=== PATIENT | female | born 1985 | race African-American/Black ===

== ENCOUNTER 2020-12-24 10:13 | Outpatient (REF) | payer OTHER, SELFPAY ==
--- NOTE | ~2020-12-24 | MR_ITS ---
MRI OF THE BRAIN WITHOUT IV CONTRAST INDICATION: Chronic daily headaches. COMPARISON: None available. TECHNIQUE: Multiplanar multisequence MR imaging of the brain was obtained without IV contrast. FINDINGS: There is no hydrocephalus, extra-axial surface collection, or herniation. No parenchymal signal abnormality. The major flow voids at the skull base are preserved. There is no acute infarct on diffusion-weighted imaging. There is no intracranial hemorrhage on the gradient recalled echo acquisition. The midline structures are normal. The cerebellar tonsils are normally positioned. The cerebellum and brainstem are normal. The craniocervical junction is normal. Osseous marrow signal intensity is homogenous. The visualized soft tissues are unremarkable. The right sphenoid sinus is completely opacified and there is a retention cyst within the left sphenoid sinus. Mild mucosal thickening within the ethmoid air cells bilaterally. MR/MR head/brain wo con IMPRESSION: - Unremarkable noncontrast MRI of the brain. - Complete opacification of the right sphenoid sinus and retention cysts within the left sphenoid sinus.
== END 2020-12-24 10:14 | disposition home or self-care (01) ==
LOC: HO.MRI 10:13
PROVIDERS: Absent Provider Family Medicine; PCP Family Medicine; Visit Provider Psychiatry & Neurology Neurology
DX: R51.9 Headache, unspecified (principal)
CPT/HCPCS: 70551

== ENCOUNTER 2021-01-15 09:19 | Day surgery (SDC) | payer OTHER, SELFPAY ==
[2021-01-15] VITALS (9 sets, daily range): BP systolic 119–135; BP diastolic 65–78; PULSE 78–91; RESP 16; TEMP 36.8; O2SAT 98–100; BMI 37.2
--- NOTE | ~2021-01-15 | FL_ITS ---
EXAMINATION: FLUOROSCOPY-GUIDED LUMBAR PUNCTURE CLINICAL INFORMATION: Chronic daily headache. COMPARISON: None TECHNIQUE: Following explaining fluoroscopy-guided lumbar puncture procedure, benefits and risk, a written consent was obtained. Patient was placed prone on fluoroscopy table and low back area was cleaned and draped in usual sterile manner. 1% lidocaine was injected at the marked site. Through a left para midline approach a 22-gauge, 6 inch long needle was inserted from the skin intrathecally at the L4-L5 disc level. After observing CSF return following removal of stylet, patient was quickly placed in left lateral view and opening CSF pressure was obtained. CSF was then collected in 4 test tubes. Initially there was hemorrhagic hence the CSF is slightly pinkish color. Postprocedure stylet was reintroduced and needle withdrawn with pressure applied at the puncture site. Patient tolerated procedure extremely well. Sterile bandage applied postprocedure. FINDINGS: On preliminary fluoroscopy imaging the vertebral heights and alignment are normal. There is a needle positioned at the L4-L5 disc level. Opening CSF pressure was 13 cm of water. Approximately 10 mL of clear CSF fluid collected. Some of the tubes may be pinkish color from hemorrhagic tap. FLUOROSCOPY TIME: 3.9 minutes DOSE AREA PRODUCT: 244.0 uGy-m2 (microgray-meter squared) FL/FL guided lumbar puncture LP IMPRESSION: Successful fluoroscopy-guided lumbar puncture performed with an opening CSF pressure of 13 cm of water. Some of the CSF and the tubes is pinkish color likely from hemorrhagic tap. Otherwise the CSF is clear.
[2021-01-15 09:59] LABS: MANUAL DIFF FLAG NO
[2021-01-15 10:03] LABS: Basophils Percent Auto 0.3 % (0-2); Eosinophils Absolute Auto 0.3 X10*3/uL (0.0-0.4); Eosinophils Percent Auto 4.2 % (0-4); Hematocrit 36.8 % (37-47); Hemoglobin 11.4 g/dl (12.0-16.0); Imm Gran Abs Auto 0.02 X10*3/uL (0.00-0.03); Imm Gran Pct Auto 0.3 % (0.0-0.4); Lymphocytes Absolute Auto 2.1 X10*3/uL (1.2-4.9); Lymphocytes Percent Auto 28.1 % (20-40); Mean Corpuscular Hemoglobin 26.5 pg (27.0-33.0); Mean Corpuscular Volume 85.4 fL (80-98); Mean Platelet Volume 9.4 fL (9.4-12.3); Monocytes Absolute Auto 0.5 X10*3/uL (0.1-1.2); Monocytes Percent Auto 6.1 % (2-11); Neutrophils Absolute Auto 4.5 X10*3/uL (2.0-8.3); Platelet Count 294 X10*3/uL (160-400); Red Blood Count 4.31 X10*6/uL (4.20-5.50); White Blood Count 7.4 X10*3/uL (4.8-10.8)
[2021-01-15 10:15] LABS: INTERNATIONAL NORM RATIO 1.1 (0.9-1.1); Prothrombin Time 12.7 SEC (10.8-13.0)
[2021-01-15 10:18] LABS: Partial Thromboplastin Time 37.6 SEC (24.1-38.0)
[2021-01-15 10:41] LABS: UPreg QC Valid YES; Urine Pregnancy NEGATIVE (NEGATIVE)
[2021-01-15 12:56] LABS: CSF Appearance Bloody; CSF Tube # 1
[2021-01-15 13:37] LABS: Glucose CSF 60 mg/dL; Total Protein CSF 49.7 mg/dL (15-45)
[2021-01-15 13:38] LABS: Appearance CSF HAZY; CSF Tube # 4; Color CSF PINK
[2021-01-15 13:39] LABS: CSF Monos 4 %; CSF Other Cells % 0 %; Lymphocytes CSF 58 %; Neutrophils CSF 28 %; Red Blood Cell CSF 2000 MM*3; White Blood Cell CSF 1 MM*3
== END 2021-01-15 15:41 | disposition home or self-care (01) ==
PROVIDERS: Psychiatry & Neurology Neurology; Radiology Diagnostic Radiology; PCP Family Medicine; Visit Provider Radiology Diagnostic Radiology
PROC: 009U3ZZ Drainage of Spinal Canal, Percutaneous Approach (ICD-10-PCS; CPT 62270; principal; 2021-01-15 11:00)
DX: R51.9 Headache, unspecified (principal); F32.9 Major depressive disorder, single episode, unspecified; F43.10 Post-traumatic stress disorder, unspecified; F41.9 Anxiety disorder, unspecified; E66.9 Obesity, unspecified; Z79.899 Other long term (current) drug therapy; Z88.8 Allergy status to other drugs, medicaments and biological substances
CPT/HCPCS: 36415; 62328; 81025; 82945; 84157; 85025; 85610; 85730; 87015; 87070; 87205; 89051

== ENCOUNTER 2021-01-18 11:05 | Emergency (ER) | payer OTHER, SELFPAY ==
[2021-01-18 11:43] VITALS: BP 170/109; PULSE 108; RESP 18; TEMP 36.5; O2SAT 98; BMI 37.2
[2021-01-18 14:09] VITALS: BP 142/88; PULSE 94; RESP 16; TEMP 36.4; O2SAT 99
--- NOTE | 2021-01-18 14:24 | ECG_ITS ---
Test Reason : WEAKNESS Blood Pressure : / mmHG Vent. Rate : 084 BPM Atrial Rate : 084 BPM P-R Int : 126 ms QRS Dur : 084 ms QT Int : 358 ms P-R-T Axes : 036 077 035 degrees QTc Int : 423 ms Normal sinus rhythm Normal ECG No previous ECGs available Referred By: Dee Helton Electronically Signed By:Abran Slater
--- NOTE | 2021-01-18 14:29 | ED_ITS ---
HPI - Headache General Chief Complaint: Headache Stated Complaint: had spinal tap headache Time Seen by Provider: 01/18/21 14:11 Source: patient Mode of arrival: ambulatory History of Present Illness HPI Narrative: 35-year-old female with a past medical history anxiety, depression, fibromyalgia, migraines, presenting to the ED complaining of persistent headache s/p lumbar puncture on [place] here [place] [facility] [place] in by Dr. Abel. Admits headache persistent worse with sitting, standing with associated lightheadedness, chest discomfort, and tingling in left arm. Was seen at [facility] the ED on Monday given IVF with no relief. Also reports nausea and vomiting. Denies fever, chills, visual change/loss, shortness of breath, leakage/infectious symptoms from site MD elicited complaint: headache Related Data Allergies Allergy/AdvReac Type Severity Reaction Status Date / Time diphenhydramine Allergy Intermediate Anaphylaxis Verified 01/15/21 09:40 [From Benadryl] Review of Systems Review of Systems: Constitutional: No Fever, No Chills Eyes: No Vision Changes Cardiovascular: + Chest Pain, No SOB Gastrointestinal: + Nausea, + Vomiting, No Diarrhea, No Constipation, No Abdominal pain Musculoskeletal: No joint pain, No Myalgias, No Joint Swelling Skin: No Skin Lesions, No rash Neuro: No Weakness, No Numbness, + Paresthesias, No Loss of Consciousness, + Dizziness/lightheadedness, + Headache Yes all other systems are reviewed and are negative [facility] Past Medical History Attestation statement: The following information was validated with the patient. Medical History (Updated 01/18/21 @ 16:28 by PARESH Rosas) Anxiety Depressed Fibromyalgia Migraine Surgical History (Updated 01/15/21 @ 10:18 by Elba Storm RN) H/O tubal ligation Social History Social History Alcohol intake: never Smoking Status: Never smoker Use of substances other than those prescribed or required for medical reasons: No Advance Directives: No Advance Directives Information Provided: No Physical Exam Vital Signs: Vital Signs: Last Vital Signs Temp 97.6 F 01/18/21 15:44 Pulse 98 01/18/21 15:44 Resp 18 01/18/21 15:44 BP 135/91 H 01/18/21 15:44 Pulse Ox 99 01/18/21 15:44 Body Mass Index 37.2 Const: General: cooperative, healthy appearing, comfortable and no acute distress Orientation/consciousness: patient oriented x3 Limitations: no limitations HENMT: Head: Yes normal to inspection Ears: hearing grossly normal bilaterally General nose exam: Normal external nose present Face and sinus: Yes normal facial exam Eyes: General: appearance normal, both eyes and all related structures Pupils: Equal, round and reactive pupils present EOM: EOMs intact bilaterally Neck: Neck: Yes normal visual inspection and Yes no lymphadenopathy Resp: Effort & Inspection: normal respiratory effort Cardio: Rate: regular rate GI: Inspection: Yes normal to inspection Palpation (GI): Soft to palpation, nontender, no guarding and not rigid Back/Spine/Pelvis: Other: No erythema/fluctuance/induration or bulging at lumbar puncture site. No appreciable leakage Skin: Rashes: no rashes Wounds: no wounds Neuro: General: patient oriented x3, gait normal, tone normal, moves all ext remities, no focal motor deficits and CN's II-XI intact bilaterally Cranial nerves: Yes Equal, round and reactive pupils present Gait exam (Neuro): Normal gait present Motor exam (neuro): 5/5 motor strength present throughout and Pronator motor function not present Coordination: [id number] test normal and Romberg test negative Extrem: General: Yes normal to inspection Course Course Course Narrative: -Dr. Abel aware -mild leukocytosis of 11.3, troponin negative Anesthesia will perform blood patch MDM - Headache MDM Narrative Medical decision making narrative: 35-year-old female with a past medical history anxiety, depression, fibromyalgia, migraines, presenting to the ED complaining of persistent headache s/p lumbar puncture on Monday here at [facility] [place] in by Dr. Abel. On exam initially tachycardic and hypertensive, appears in pain, no focal neuro deficits. Likely post LP headache. Low concern for ACS/PE or bleed Plan: EKG, labs, consult and anesthesia for blood patch Medical Records Attestation: I reviewed the patient's medical records. Lab Data Attestation: I reviewed the patient's lab results. Result diagrams: 01/18/21 15:38 01/18/21 15:38 Labs: Lab Results 01/18/21 01/18/21 Range/Units 15:38 15:38 WBC 11.3 H (4.8-10.8) X10*3/uL RBC 4.66 (4.20-5.50) X10*6/uL Hgb 12.5 (12.0-16.0) g/dl Hct 39.9 (37-47) % MCV 85.6 (80-98) fL MCH 26.8 L (27.0-33.0) pg MCHC 31.3 (31.0-35.0) g/dl RDW 14.0 (11.0-16.0) % Plt Count 326 (160-400) X10*3/uL MPV 9.2 L (9.4-12.3) fL Immature Gran % (Auto) 0.3 (0.0-0.4) % Neut % (Auto) 87.2 H (45-73) % Lymph % (Auto) 9.2 L (20-40) % [place] % (Auto) 2.7 (2-11) % Eos % (Auto) 0.4 (0-4) % Baso % (Auto) 0.2 (0-2) % Lymph # (Auto) 1.0 L (1.2-4.9) X10*3/uL [place] # (Auto) 0.3 (0.1-1.2) X10*3/uL Eos # (Auto) 0.1 (0.0-0.4) X10*3/uL Baso # (Auto) 0.0 (0.0-0.2) X10*3/uL Abs Immat Gran (auto) 0.03 (0.00-0.03) X10*3/uL Absolute Neuts (auto) 9.9 H (2.0-8.3) X10*3/uL Absolute Nucleated RBC 0.000 (0.0-0.012) X10*3/uL Nucleated RBC % (auto) 0.0 (0.0-0.2) /100WBC PT 13.4 H (10.8-13.0) SEC INR 1.1 (0.9-1.1) APTT 38.7 H (24.1-38.0) SEC Discharge Plan Discharge Clinical Impression: Post-lumbar puncture headache Instructions: Lumbar Puncture (ED) Referrals: Juan Jose Abel MD [Physician] - 3 days
[2021-01-18] MEDS: 0.9 % Sodium Chloride 1,000 ML 999 ML IVCONT (15:39)
[2021-01-18] MEDS: Butalb/Acetamin/Caff 50/325/40 TABLET 2 TAB PO (15:42)
[2021-01-18 15:44] VITALS: BP 135/91; PULSE 98; RESP 18; TEMP 36.4; O2SAT 99
[2021-01-18 15:48] LABS: MANUAL DIFF FLAG NO
[2021-01-18 15:50] LABS: Basophils Percent Auto 0.2 % (0-2); Eosinophils Absolute Auto 0.1 X10*3/uL (0.0-0.4); Eosinophils Percent Auto 0.4 % (0-4); Hematocrit 39.9 % (37-47); Hemoglobin 12.5 g/dl (12.0-16.0); Imm Gran Abs Auto 0.03 X10*3/uL (0.00-0.03); Imm Gran Pct Auto 0.3 % (0.0-0.4); Lymphocytes Percent Auto 9.2 % (20-40); Mean Corpuscular HGB Conc 31.3 g/dl (31.0-35.0); Mean Corpuscular Hemoglobin 26.8 pg (27.0-33.0); Mean Corpuscular Volume 85.6 fL (80-98); Mean Platelet Volume 9.2 fL (9.4-12.3); Monocytes Absolute Auto 0.3 X10*3/uL (0.1-1.2); Monocytes Percent Auto 2.7 % (2-11); Neutrophils Absolute Auto 9.9 X10*3/uL (2.0-8.3); Neutrophils Percent Auto 87.2 % (45-73); Platelet Count 326 X10*3/uL (160-400); Red Blood Count 4.66 X10*6/uL (4.20-5.50); White Blood Count 11.3 X10*3/uL (4.8-10.8)
[2021-01-18 15:56] LABS: INTERNATIONAL NORM RATIO 1.1 (0.9-1.1); Prothrombin Time 13.4 SEC (10.8-13.0)
[2021-01-18 15:59] LABS: Partial Thromboplastin Time 38.7 SEC (24.1-38.0)
[2021-01-18 16:19] LABS: Troponin-I High Sensitivity < 3.5 ng/L (<3.5-17.0)
--- NOTE | 2021-01-18 17:33 | PC.NURSE ---
This nurse at bedside to assist Dr Bobo with blood patch.
[2021-01-18 17:34] VITALS: BP 127/85; PULSE 80; RESP 16; TEMP 36.4; O2SAT 98
[2021-01-18 20:55] LABS: Alanine Aminotransferase 32 U/L (0-31); Alkaline Phosphatase 83 U/L (39-117); Anion Gap 12 (12-20); Aspartate Amino Transferase 13 U/L (5-31); Bilirubin Direct 0.2 mg/dL (0.0-0.5); Bilirubin Total 0.3 mg/dL (0.0-1.0); Blood Urea Nitrogen 9 mg/dL (9-16); Calcium 8.8 mg/dL (8.4-10.2); Carbon Dioxide 27 mmol/L (22-29); Chloride 106 mmol/L (96-108); Creatinine Clr Calc Pharmacy 130.9; Estimated Glomerular Filt Rate > 60; Glucose Random 92 mg/dL (60-115); Magnesium 1.7 mg/dL (1.6-2.6); Sodium 141 mmol/L (135-145); Total Protein 6.9 g/dL (6.5-8.0)
[2021-01-18] MEDS: Ketorolac Tromethamine 30 MG/ML VIAL IVPUSH (21:38)
--- NOTE | 2021-01-19 10:37 | P.CONAN_ITS ---
History of Present Illness Consult details Consult date: 01/18/21 [facility] Past Medical History Medical History Anxiety Depressed Fibromyalgia Migraine Surgical History Surgical History H/O tubal ligation Social History Social History Alcohol intake: never Smoking Status: Never smoker Use of substances other than those prescribed or required for medical reasons: No Advance Directives: No Advance Directives Information Provided: No Meds Allergies Allergy/AdvReac Type Severity Reaction Status Date / Time diphenhydramine Allergy Intermediate Anaphylaxis Verified 01/15/21 09:40 [From Benadryl] Physical Exam Vital Signs: Vital Signs: Last Vital Signs Temp 97.6 F 01/18/21 17:34 Pulse 80 01/18/21 17:34 Resp 16 01/18/21 17:34 BP 127/85 01/18/21 17:34 Pulse Ox 98 01/18/21 17:34 Body Mass Index 37.2 Const: Orientation/consciousness: oriented to person, oriented to place and oriented to time Neck: Neck: Yes no meningeal signs Neuro: General: oriented to person, oriented to place, oriented to time, no meningeal signs and no focal motor deficits Cranial nerves: Yes Facial sensation intact/muscles of mastication intact Cognition (Neuro): normal cognition Motor exam (neuro): 5/5 motor strength present throughout Sensory Exam: Normal double simultaneous stimulation for sensation Results Labs Result diagrams: 01/18/21 15:38 01/18/21 20:24 Labs: Abnormal lab results 01/18/21 01/18/21 01/18/21 Range/Units 15:38 15:38 20:24 WBC 11.3 H (4.8-10.8) X10*3/uL MCH 26.8 L (27.0-33.0) pg MPV 9.2 L (9.4-12.3) fL Neut % (Auto) 87.2 H (45-73) % Lymph % (Auto) 9.2 L (20-40) % Lymph # (Auto) 1.0 L (1.2-4.9) X10*3/uL Absolute Neuts (auto) 9.9 H (2.0-8.3) X10*3/uL PT 13.4 H (10.8-13.0) SEC APTT 38.7 H (24.1-38.0) SEC ALT 32 H (0-31) U/L Short CBC 01/18/21 Range/Units 15:38 WBC 11.3 H (4.8-10.8) X10*3/uL Hgb 12.5 (12.0-16.0) g/dl Hct 39.9 (37-47) % Plt Count 326 (160-400) X10*3/uL BMP 01/18/21 20:24 Sodium 141 Potassium 4.0 Chloride 106 Carbon Dioxide 27 BUN 9 Creatinine 0.69 Calcium 8.8 Liver Function 01/18/21 Range/Units 20:24 Total Bilirubin 0.3 (0.0-1.0) mg/dL Direct Bilirubin 0.2 (0.0-0.5) mg/dL AST 13 (5-31) U/L ALT 32 H (0-31) U/L Alkaline Phosphatase 83 (39-117) U/L Albumin 4.0 (3.5-5.0) g/dL All other labs normal.
--- NOTE | 2021-01-19 10:57 | PM.ANESCN ---
History of Present Illness Consult details Consult date: 01/18/21 [facility] Past Medical History Medical History Anxiety Depressed Fibromyalgia Migraine Surgical History Surgical History H/O tubal ligation Social History Social History Alcohol intake: never Smoking Status: Never smoker Use of substances other than those prescribed or required for medical reasons: No Advance Directives: No Advance Directives Information Provided: No Meds Allergies Allergy/AdvReac Type Severity Reaction Status Date / Time diphenhydramine Allergy Intermediate Anaphylaxis Verified 01/15/21 09:40 [From Benadryl] Physical Exam Vital Signs: Vital Signs: Last Vital Signs Temp 97.6 F 01/18/21 17:34 Pulse 80 01/18/21 17:34 Resp 16 01/18/21 17:34 BP 127/85 01/18/21 17:34 Pulse Ox 98 01/18/21 17:34 Body Mass Index 37.2 Results Labs Result diagrams: 01/18/21 15:38 01/18/21 20:24 Labs: Abnormal lab results 01/18/21 01/18/21 01/18/21 Range/Units 15:38 15:38 20:24 WBC 11.3 H (4.8-10.8) X10*3/uL MCH 26.8 L (27.0-33.0) pg MPV 9.2 L (9.4-12.3) fL Neut % (Auto) 87.2 H (45-73) % Lymph % (Auto) 9.2 L (20-40) % Lymph # (Auto) 1.0 L (1.2-4.9) X10*3/uL Absolute Neuts (auto) 9.9 H (2.0-8.3) X10*3/uL PT 13.4 H (10.8-13.0) SEC APTT 38.7 H (24.1-38.0) SEC ALT 32 H (0-31) U/L Short CBC 01/18/21 Range/Units 15:38 WBC 11.3 H (4.8-10.8) X10*3/uL Hgb 12.5 (12.0-16.0) g/dl Hct 39.9 (37-47) % Plt Count 326 (160-400) X10*3/uL BMP 01/18/21 20:24 Sodium 141 Potassium 4.0 Chloride 106 Carbon Dioxide 27 BUN 9 Creatinine 0.69 Calcium 8.8 Liver Function 01/18/21 Range/Units 20:24 Total Bilirubin 0.3 (0.0-1.0) mg/dL Direct Bilirubin 0.2 (0.0-0.5) mg/dL AST 13 (5-31) U/L ALT 32 H (0-31) U/L Alkaline Phosphatase 83 (39-117) U/L Albumin 4.0 (3.5-5.0) g/dL All other labs normal. Details: ER consulted anesthesia to evaluate a pt with postural headache. She had a spinal tap 3 days ago and her symptoms began a few hours later, she graded it 10/10 in vertical position, localized mostly to the occipital area and the forehead. on examination, her symptoms could be reproduced in sitting position, she had no neurological abnormality. After obtaining informed consent, she was positioned in sitting, the back was cleansed with antiseptic solution thoroughly an following local anesthesia with Lidocaine 1%, #18 gauge Touhy needle into the L2-3 intervertabral space from midline approach. The epidural space was confirmed with loss of resistance technique. 20 ml blood was drawned through her right antecubital ivl with previous cleansing of the hub and letting several ml blood before. The 20 ml of blood was injected into the epidural space, pt indicated back pressure only at the end of injection. Her headache terminated completely. There was no immediate side effect. I explained to pt to come back to ER if she had fever,malaise, numbness, weakness in her extermities, etc. She was observed in ER for an hour and was discharged in stable condition. Sarah Bobo MD N
== END 2021-01-18 21:50 | disposition home or self-care (01) ==
PROVIDERS: Physician Assistant; Emergency Provider Internal Medicine; PCP Family Medicine
DX: G97.1 Other reaction to spinal and lumbar puncture (principal); R00.0 Tachycardia, unspecified; F41.9 Anxiety disorder, unspecified
CPT/HCPCS: 36415; 80048; 80076; 83735; 84484; 85025; 85610; 85730; 93005; 96361; 96374; 99284; 99285; J1885